=== PATIENT | female | born 2000 | race Caucasian/White ===

== ENCOUNTER 2023-04-05 17:44 | Emergency (ER) | payer OTHER ==
[~2023-04-05] VITALS: Ht 160 cm; Wt 63.5 kg
[2023-04-05] MEDS ORDERED: NAPR-1164 PO (18:36)
[2023-04-05] MEDS ORDERED: NAPROXEN 500 MG TABLET PO ONE (18:45)
[2023-04-05] MEDS ORDERED: NAPROXEN 500 MG TABLET ONE (18:57)
[2023-04-05 19:14] LABS: *URINE HCG, QUAL NEGATIVE (NEGATIVE)
[2023-04-05] MEDS ORDERED: CYCL5TAB PO (20:42)
[2023-04-05 21:56] VITALS: BP 109/63; TEMP 98.6; O2SAT 98
== END 2023-04-05 21:00 | disposition home or self-care (01) ==
LOC: ER 17:49
DX: M46.1 Sacroiliitis, not elsewhere classified (principal); M54.16 Radiculopathy, lumbar region; M51.37 Other intervertebral disc degeneration, lumbosacral region; F17.210 Nicotine dependence, cigarettes, uncomplicated; Z79.899 Other long term (current) drug therapy
CPT/HCPCS: 72131; 72220; 84703; A4663